=== PATIENT | male | born 1935 | race Caucasian/White ===

== ENCOUNTER 2021-03-10 15:13 | Emergency (ER) | payer MEDICARE, OTHER ==
--- NOTE | 2021-03-10 15:12 | EDM.PDOC ---
ED HPI GENERAL MEDICAL PROBLEM - General Stated Complaint: AMBULANCE Time Seen by Provider: 03/10/21 15:05 Source of Information: Reports: Patient, EMS, Family (Daughter ), RN, RN Notes Reviewed History Limitations: Reports: Other (Significantly hard of hearing) - History of Present Illness INITIAL COMMENTS - FREE TEXT/NARRATIVE: Nelsy is an 86 y/o male, with a history of CVA who is significantly hard of hearing, who presents to the ED via [facility] at the request of his daughter for increased confusion and headache. Upon arrival to this facility, the patient is alert and oriented to self, only; equal strength to all extremities, bilaterally. The patient denies headache or pain to any areas of his body. HPI is limited due to degree of hearing loss, but patient continually states cheerfully, "I am fine.." The patient's daughter reports he called her into the living room due stating something was wrong while grabbing his head; he stated he had a headache but that something else was wrong. She then noted the patient appeared to be confused. The patient's daughter reports his was diagnosed with a COVID infection three weeks ago, therefore she had the patient tested via a [employer] rapid test which was negative. She notes his CVA was in 1996 from which he recovered without complication. Additionally, the patient has experienced inability to keep left eyelid open. This started approximately two weeks ago, per the patient's daughter, for which he will receive examination by ophthalmology in two weeks. Per the daughter, the patient smokes 1/2 pack of cigarettes per day, she denies alcohol or recreational drug use [facility] - Related Data Allergies Allergy/AdvReac Type Severity Reaction Status Date / Time No Known Allergies Allergy Verified 03/10/21 15:34 Home Meds: Home Meds Acetaminophen [Tylenol] 500 mg PO ASDIRECTED 03/10/21 [History] Aspirin 325 mg PO ATDISCHARGE 03/10/21 [History] Bisoprolol/Hydrochlorothiazide [Bisoprolol-Hctz 5-6.25 mg Tab] 1 tab PO ASDIRECTED 03/10/21 [History] Fish Oil/[place]-3 Fatty Acids [Fish Oil 1,000 MG] 4 tab PO ASDIRECTED 03/10/21 [History] atorvaSTATin [Lipitor] 20 mg PO ASDIRECTED 03/10/21 [History] ED ROS GENERAL - Review of Systems Review Of Systems: Comprehensive ROS is negative, except as noted in HPI. ED EXAM, NEURO - Physical Exam Exam: See Below Exam Limited By: Language Barrier (Significantly AGUA CALIENTE) General Appearance: Alert, No Apparent Distress Eye Exam: Right Eye: Vision Changes (Decreased vision in right lateral), Left Eye: Periorbital Changes (Eye lid closed) Ears: Normal External Exam, Normal Canal, Normal TMs, Hearing Loss Nose: Normal Inspection, Normal Mucosa, No Blood Throat/Mouth: Normal Inspection, Normal Oropharynx, Normal Voice, No Airway Compromise. No: Normal Teeth (Poor dentition) Head Exam: Atraumatic, Normocephalic Neck: Normal Inspection, Full Range of Motion Respiratory/Chest: No Accessory Muscle Use, Chest Non-Tender, Rhonchi (Diffuse to bilateral miller). No: Crackles, Rales, Wheezing, Stridor Cardiovascular: Normal Peripheral Pulses, Regular Rate, Rhythm, No Gallop, No JVD, No Murmur, No Rub. No: No Edema GI/Abdominal: Normal Bowel Sounds, Soft, Non-Tender, No Distention, No Abnormal Bruit, No Mass, Pelvis Stable (Male) Exam: Deferred Rectal (Males) Exam: Deferred Neurological: Alert, Normal Mood/Affect, Normal Dorsiflexion, Normal Plantar Flexion, Withdraws to Pain, Abnormal Finger to Nose. No: Normal Gait, Normal Reflexes, Oriented x 3 (Disoriented to place, time, and situation), Abnormal Sensation, Abnormal Light Touch, Abnormal Motor, Abnormal Pin Prick, Straight Leg Raise (L), Straight Leg Raise (R) Back Exam: Normal Inspection, Full Range of Motion Extremities: Normal Range of Motion, Normal Capillary Refill, Pedal Edema (+2 pitting, bilaterally) Psychiatric: Normal Affect, Normal Mood Skin Exam: Warm, Dry, Intact, No Rash, Pallor #1 Interpretation EKG Date: 03/10/21 Time: 16:31 Rhythm: Other (Sinus Casey) Rate (Beats/Min): 53 [place]: Normal P-Wave: Present QRS: Normal ST-T: Normal QT: Normal NM/PQ Interval: 0.303 Comparison: NA - No Prior EKG EKG Interpretation Comments: SB with 1st Degree AVB; No evidence of acute myocardial ischemia Course - Vital Signs Last Recorded V/S: Last Vital Signs Temp 99.2 F 03/10/21 15:24 Pulse 55 L 03/10/21 15:24 Resp 14 03/10/21 15:24 BP 162/62 H 03/10/21 15:24 Pulse Ox 97 03/10/21 15:24 - Orders/Labs/Meds Orders: Active Orders 24 hr Category Date Time Status CULTURE BLOOD [BC] Stat Lab 03/10/21 15:14 Received Labs: Laboratory Tests 03/10/21 03/10/21 03/10/21 Range/Units 15:05 15:14 15:14 WBC 6.6 (5.0-10.0) 10^3/uL RBC 3.67 L (4.6-6.2) 10^6/uL Hgb 11.5 L (14.0-18.0) g/dL Hct 36.0 L (40.0-54.0) % MCV 98.1 (80-100) fL MCH 31.3 (27.0-34.0) pg MCHC 31.9 L (33.0-35.0) g/dL Plt Count 123 L (150-450) 10^3/uL Neut % (Auto) 74.8 (42.2-75.2) % Lymph % (Auto) 14.5 L (20.5-50.1) % [place] % (Auto) 9.5 H (2-8) % Eos % (Auto) 0.9 L (1.0-3.0) % Baso % (Auto) 0.3 (0.0-1.0) % Sodium 142 (136-145) mmol/L Potassium 4.5 (3.5-5.1) mmol/L Chloride 107 (98-107) mmol/L Carbon Dioxide 26 (21-32) mmol/L Anion Gap 13.5 H (7-13) mEq/L BUN 33 H (7-18) mg/dL Creatinine 1.92 H (0.70-1.30) mg/dL Est Cr Clr Drug Dosing TNP Estimated GFR (MDRD) 33 BUN/Creatinine Ratio 17.2 (No establ ref range) Glucose 94 (70-99) mg/dL Lactic Acid (0.4-2.0) mmol/L Calcium 8.3 L (8.5-10.1) mg/dL Magnesium 1.9 (1.8-2.4) mg/dL Total Bilirubin 0.6 (0.2-1.0) mg/dL AST 24 (15-37) U/L ALT 22 (16-63) U/L Alkaline Phosphatase 102 (46-116) U/L Ammonia (11-32) umol/L Troponin I High Sens 12 (<=76) pg/mL C-Reactive Protein < 0.2 (0.0-0.9) mg/dL B-Natriuretic Peptide 276 H (0-100) pg/ml Total Protein 6.4 (6.4-8.2) g/dL Albumin 3.1 L (3.4-5.0) g/dL Globulin 3.3 Albumin/Globulin Ratio 0.94 Urine Color (YELLOW) Urine Appearance (CLEAR) Urine pH (5.0-9.0) Ur Specific [place] (1.005-1.030) Urine Protein (NEGATIVE) Urine Glucose (UA) (NEGATIVE) Urine Ketones (NEGATIVE) Urine Occult Blood (NEGATIVE) Urine Nitrite (NEGATIVE) Urine Bilirubin (NEGATIVE) Urine Urobilinogen (0.2-1.0) mg/dL Ur Leukocyte Esterase (NEGATIVE) U Hyaline Cast (Auto) Urine RBC (0-5) /HPF Urine WBC (0-5/HPF) /HPF Ur Epithelial Cells (NOT SEEN) /HPF Amorphous Sediment (NOT SEEN) /HPF Urine Opiates Screen (NEGATIVE) Ur Oxycodone Screen (NEGATIVE) Urine Methadone Screen (NEGATIVE) Ur Barbiturates Screen (NEGATIVE) U Tricyclic Antidepress (NEGATIVE) Ur Phencyclidine Scrn (NEGATIVE) Ur Amphetamine Screen (NEGATIVE) U Methamphetamines Scrn (NEGATIVE) Urine MDMA Screen (NEGATIVE) U Benzodiazepines Scrn (NEGATIVE) Urine Cocaine Screen (NEGATIVE) U Marijuana (THC) Screen (NEGATIVE) Ethyl Alcohol < 3 (0) mg/dL SARS-CoV-2 RNA (XOCHILT) Negative (NEGATIVE) 03/10/21 03/10/21 03/10/21 Range/Units 15:14 15:14 15:20 WBC (5.0-10.0) 10^3/uL RBC (4.6-6.2) 10^6/uL Hgb (14.0-18.0) g/dL Hct (40.0-54.0) % MCV (80-100) fL MCH (27.0-34.0) pg MCHC (33.0-35.0) g/dL Plt Count (150-450) 10^3/uL Neut % (Auto) (42.2-75.2) % Lymph % (Auto) (20.5-50.1) % [place] % (Auto) (2-8) % Eos % (Auto) (1.0-3.0) % Baso % (Auto) (0.0-1.0) % Sodium (136-145) mmol/L Potassium (3.5-5.1) mmol/L Chloride (98-107) mmol/L Carbon Dioxide (21-32) mmol/L Anion Gap (7-13) mEq/L BUN (7-18) mg/dL Creatinine (0.70-1.30) mg/dL Est Cr Clr Drug Dosing Estimated GFR (MDRD) BUN/Creatinine Ratio (No establ ref range) Glucose (70-99) mg/dL Lactic Acid 1.4 (0.4-2.0) mmol/L Calcium (8.5-10.1) mg/dL Magnesium (1.8-2.4) mg/dL Total Bilirubin (0.2-1.0) mg/dL AST (15-37) U/L ALT (16-63) U/L Alkaline Phosphatase (46-116) U/L Ammonia < 10 L (11-32) umol/L Troponin I High Sens (<=76) pg/mL C-Reactive Protein (0.0-0.9) mg/dL B-Natriuretic Peptide (0-100) pg/ml Total Protein (6.4-8.2) g/dL Albumin (3.4-5.0) g/dL Globulin Albumin/Globulin Ratio Urine Color Yellow (YELLOW) Urine Appearance Clear (CLEAR) Urine pH 6.0 (5.0-9.0) Ur Specific [place] 1.025 (1.005-1.030) Urine Protein 100 H (NEGATIVE) Urine Glucose (UA) Negative (NEGATIVE) Urine Ketones Negative (NEGATIVE) Urine Occult Blood Trace-lysed H (NEGATIVE) Urine Nitrite Negative (NEGATIVE) Urine Bilirubin Negative (NEGATIVE) Urine Urobilinogen 0.2 (0.2-1.0) mg/dL Ur Leukocyte Esterase Negative (NEGATIVE) U Hyaline Cast (Auto) Few Urine RBC 0-5 (0-5) /HPF Urine WBC 0-5 (0-5/HPF) /HPF Ur Epithelial Cells Few (NOT SEEN) /HPF Amorphous Sediment Few (NOT SEEN) /HPF Urine Opiates Screen (NEGATIVE) Ur Oxycodone Screen (NEGATIVE) Urine Methadone Screen (NEGATIVE) Ur Barbiturates Screen (NEGATIVE) U Tricyclic Antidepress (NEGATIVE) Ur Phencyclidine Scrn (NEGATIVE) Ur Amphetamine Screen (NEGATIVE) U Methamphetamines Scrn (NEGATIVE) Urine MDMA Screen (NEGATIVE) U Benzodiazepines Scrn (NEGATIVE) Urine Cocaine Screen (NEGATIVE) U Marijuana (THC) Screen (NEGATIVE) Ethyl Alcohol (0) mg/dL SARS-CoV-2 RNA (XOCHILT) (NEGATIVE) 03/10/21 Range/Units 15:20 WBC (5.0-10.0) 10^3/uL RBC (4.6-6.2) 10^6/uL Hgb (14.0-18.0) g/dL Hct (40.0-54.0) % MCV (80-100) fL MCH (27.0-34.0) pg MCHC (33.0-35.0) g/dL Plt Count (150-450) 10^3/uL Neut % (Auto) (42.2-75.2) % Lymph % (Auto) (20.5-50.1) % [place] % (Auto) (2-8) % Eos % (Auto) (1.0-3.0) % Baso % (Auto) (0.0-1.0) % Sodium (136-145) mmol/L Potassium (3.5-5.1) mmol/L Chloride (98-107) mmol/L Carbon Dioxide (21-32) mmol/L Anion Gap (7-13) mEq/L BUN (7-18) mg/dL Creatinine (0.70-1.30) mg/dL Est Cr Clr Drug Dosing Estimated GFR (MDRD) BUN/Creatinine Ratio (No establ ref range) Glucose (70-99) mg/dL Lactic Acid (0.4-2.0) mmol/L Calcium (8.5-10.1) mg/dL Magnesium (1.8-2.4) mg/dL Total Bilirubin (0.2-1.0) mg/dL AST (15-37) U/L ALT (16-63) U/L Alkaline Phosphatase (46-116) U/L Ammonia (11-32) umol/L Troponin I High Sens (<=76) pg/mL C-Reactive Protein (0.0-0.9) mg/dL B-Natriuretic Peptide (0-100) pg/ml Total Protein (6.4-8.2) g/dL Albumin (3.4-5.0) g/dL Globulin Albumin/Globulin Ratio Urine Color (YELLOW) Urine Appearance (CLEAR) Urine pH (5.0-9.0) Ur Specific [place] (1.005-1.030) Urine Protein (NEGATIVE) Urine Glucose (UA) (NEGATIVE) Urine Ketones (NEGATIVE) Urine Occult Blood (NEGATIVE) Urine Nitrite (NEGATIVE) Urine Bilirubin (NEGATIVE) Urine Urobilinogen (0.2-1.0) mg/dL Ur Leukocyte Esterase (NEGATIVE) U Hyaline Cast (Auto) Urine RBC (0-5) /HPF Urine WBC (0-5/HPF) /HPF Ur Epithelial Cells (NOT SEEN) /HPF Amorphous Sediment (NOT SEEN) /HPF Urine Opiates Screen Negative (NEGATIVE) Ur Oxycodone Screen Negative (NEGATIVE) Urine Methadone Screen Negative (NEGATIVE) Ur Barbiturates Screen Negative (NEGATIVE) U Tricyclic Antidepress Negative (NEGATIVE) Ur Phencyclidine Scrn Negative (NEGATIVE) Ur Amphetamine Screen Negative (NEGATIVE) U Methamphetamines Scrn Negative (NEGATIVE) Urine MDMA Screen Negative (NEGATIVE) U Benzodiazepines Scrn Negative (NEGATIVE) Urine Cocaine Screen Negative (NEGATIVE) U Marijuana (THC) Screen Negative (NEGATIVE) Ethyl Alcohol (0) mg/dL SARS-CoV-2 RNA (XOCHILT) (NEGATIVE) - Radiology Interpretation Free Text/Narrative:: [facility] Final Radiology Report Call: [phone] assistance Online chat: [email or web address] Name: NELSY EDWARD Age: 86Years M Date: 03/10/2021 SSN: -- : [id number] Study: CT HEAD WO CONT Requesting Physician: Lissette Morales Images: 160 Addl Studies: Provided Clinical History: r/o stroke Contrast: Without Contrast Medium: Contrast Amount: Contrast Method: Page 1 of 2 PROCEDURE INFORMATION: Exam: CT Head Without Contrast Exam date and time: 03/10/2021 3:52 PM Age: 86 years old Clinical indication: Weakness, facial; Additional info: R/O stroke TECHNIQUE: Imaging protocol: Computed tomography of the head without contrast. Radiation optimization: All CT scans at this facility use at least one of these dose optimization techniques: automated exposure control; mA and/or kV adjustment per patient size (includes targeted exams where dose is matched to clinical indication); or iterative reconstruction. Other technique: STROKE PROTOCOL was implemented. COMPARISON: No relevant prior studies available. FINDINGS: Brain: There is no intracranial mass effect or midline shift. There is no sign of acute intracranial hemorrhage or cerebral edema. There is mild supratentorial white matter lucency, consistent with chronic microvascular ischemic change. Cerebral ventricles: No ventriculomegaly. Paranasal sinuses: Visualized sinuses are unremarkable. No fluid levels. Mastoid air cells: Visualized mastoid air cells are well aerated. Bones/joints: Skull base and overlying calvarium are intact. No lytic or osteosclerotic lesions. Soft tissues: Unremarkable. IMPRESSION: 1. Negative head CT. 2. [place] Stroke Program Early CT Score (ASPECTS) = 10. Thank you for allowing us to participate in the care of your patient. Dictated and Authenticated by: Reji Raphael MD 03/10/2021 4:33 PM Central Time ([place] & [place]) [facility] Final Radiology Report Call: [phone] assistance Online chat: [email or web address] Name: NELSY EDWARD Age: 86Years M Date: 03/10/2021 SSN: -- : [id number] Study: CT CHEST WO CONT Requesting Physician: Lissette Morales Images: [id number] Addl Studies: Provided Clinical History: Rhonchi throughout, r/o pneumonia Contrast: Without Contrast Medium: Contrast Amount: Contrast Method: Page 1 of 2 PROCEDURE INFORMATION: Exam: CT Chest Without Contrast; Diagnostic Exam date and time: 03/10/2021 3:52 PM Age: 86 years old Clinical indication: Other: Rhonchi throughout, R/O pneumonia TECHNIQUE: Imaging protocol: Diagnostic computed tomography of the chest without contrast. Total images: 1533 Radiation optimization: All CT scans at this facility use at least one of these dose optimization techniques: automated exposure control; mA and/or kV adjustment per patient size (includes targeted exams where dose is matched to clinical indication); or iterative reconstruction. COMPARISON: No relevant prior studies available. FINDINGS: Lungs: Dependent atelectasis at the lung bases. Minimal centrilobular emphysema most pronounced upper lobes. Pleural spaces: Unremarkable. No pneumothorax. No pleural effusion. Heart: Coronary artery calcification. Aorta: Distended ascending thoracic aorta measuring 3.7 cm. Lymph nodes: Unremarkable. No enlarged lymph nodes. Liver: Calcified hepatic granulomata. Gallbladder and bile ducts: Status post cholecystectomy. Spleen: Calcified splenic granulomata. Bones/joints: Degenerative changes of spine. Soft tissues: Mild diffuse subcutaneous/soft tissue edema. IMPRESSION: 1. Minimal dependent atelectasis. No discrete focal pneumonia. 2. Minimal diffuse subcutaneous/soft tissue edema. 3. See above for other details. Thank you for allowing us to participate in the care of your patient. Dictated and Authenticated by: Reji Jacobson MD 03/10/2021 4:51 PM Central Time ([place] & [place]) - Re-Assessments/Exams Free Text/Narrative Re-Assessment/Exam: 03/10/21 CT head obtained. Patient increasingly confused compared to admission, unable to recognize daughter at this time. Oriented to self, only. Case discussed with Dr. Quinn, neurologist at [facility], who recommends reviewing the case with [facility] given degree of aphasia and apparent vision loss. Case discussed with Dr. Barbosa who kindly accepted patient for transfer. Patient out of window for tPA. Will send by rotor given length of time for transport via [place]. Findings of examination, lab work, and imaging reviewed with patient and daughter. Patient's daughter verbalized understanding and agreement with the plan of care. Departure - Departure Time of Disposition: 18:19 Disposition: DC/Tfer to Acute Hospital 02 Condition: Fair Clinical Impression: CVA (cerebral vascular accident) Qualifiers: CVA mechanism: unspecified Qualified Code(s): I63.9 - Cerebral infarction, unspecified - Discharge Information Forms: Interfacility Transfer EMTALA - My Orders Last 24 Hours: My Active Orders 03/10/21 15:14 CULTURE BLOOD [BC] Stat - Assessment/Plan Last 24 Hours: My Active Orders 03/10/21 15:14 CULTURE BLOOD [BC] Stat
[2021-03-10 15:40] LABS: AMPHETAMINES,URINE NEGATIVE (NEGATIVE); BARBITURATES,URINE NEGATIVE (NEGATIVE); BENZODIAZEPINE,URINE NEGATIVE (NEGATIVE); MDMA (ECSTASY), URINE NEGATIVE (NEGATIVE); METHADONE,URINE NEGATIVE (NEGATIVE); METHAMPHETAMINES,URINE NEGATIVE (NEGATIVE); OPIATES,URINE NEGATIVE (NEGATIVE); OXYCODONE,URINE NEGATIVE (NEGATIVE); PHENCYCLIDINE,URINE NEGATIVE (NEGATIVE); TCA,URINE NEGATIVE (NEGATIVE)
[2021-03-10 15:48] LABS: ANION GAP 13.5 mEq/L (7-13); CHLORIDE,CL 107 mmol/L (98-107); SODIUM,NA 142 mmol/L (136-145)
--- NOTE | 2021-03-10 16:34 | CT ---
PROCEDURE INFORMATION: Exam: CT Head Without Contrast Exam date and time: 03/10/2021 3:52 PM Age: 86 years old Clinical indication: Weakness, facial; Additional info: R/O stroke TECHNIQUE: Imaging protocol: Computed tomography of the head without contrast. Radiation optimization: All CT scans at this facility use at least one of these dose optimization techniques: automated exposure control; mA and/or kV adjustment per patient size (includes targeted exams where dose is matched to clinical indication); or iterative reconstruction. Other technique: STROKE PROTOCOL was implemented. COMPARISON: No relevant prior studies available. FINDINGS: Brain: There is no intracranial mass effect or midline shift. There is no sign of acute intracranial hemorrhage or cerebral edema. There is mild supratentorial white matter lucency, consistent with chronic microvascular ischemic change. Cerebral ventricles: No ventriculomegaly. Paranasal sinuses: Visualized sinuses are unremarkable. No fluid levels. Mastoid air cells: Visualized mastoid air cells are well aerated. Bones/joints: Skull base and overlying calvarium are intact. No lytic or osteosclerotic lesions. Soft tissues: Unremarkable. IMPRESSION: 1. Negative head CT. 2. [place] Stroke Program Early CT Score (ASPECTS) = 10.
--- NOTE | 2021-03-10 16:51 | CT ---
PROCEDURE INFORMATION: Exam: CT Chest Without Contrast; Diagnostic Exam date and time: 03/10/2021 3:52 PM Age: 86 years old Clinical indication: Other: Rhonchi throughout, R/O pneumonia TECHNIQUE: Imaging protocol: Diagnostic computed tomography of the chest without contrast. Total images: 1533 Radiation optimization: All CT scans at this facility use at least one of these dose optimization techniques: automated exposure control; mA and/or kV adjustment per patient size (includes targeted exams where dose is matched to clinical indication); or iterative reconstruction. COMPARISON: No relevant prior studies available. FINDINGS: Lungs: Dependent atelectasis at the lung bases. Minimal centrilobular emphysema most pronounced upper lobes. Pleural spaces: Unremarkable. No pneumothorax. No pleural effusion. Heart: Coronary artery calcification. Aorta: Distended ascending thoracic aorta measuring 3.7 cm. Lymph nodes: Unremarkable. No enlarged lymph nodes. Liver: Calcified hepatic granulomata. Gallbladder and bile ducts: Status post cholecystectomy. Spleen: Calcified splenic granulomata. Bones/joints: Degenerative changes of spine. Soft tissues: Mild diffuse subcutaneous/soft tissue edema. IMPRESSION: 1. Minimal dependent atelectasis. No discrete focal pneumonia. 2. Minimal diffuse subcutaneous/soft tissue edema. 3. See above for other details.
== END 2021-03-10 18:39 ==
LOC: DL.ED 15:13
DX: I63.9 Cerebral infarction, unspecified (principal); Z86.73 Personal history of transient ischemic attack (TIA), and cerebral infarction without residual deficits; Z79.82 Long term (current) use of aspirin; Z79.899 Other long term (current) drug therapy; Z20.822 Contact with and (suspected) exposure to COVID-19
CPT/HCPCS: 36415; 70450; 71250; 80053; 80305; 80307; 81001; 82140; 83605; 83735; 83880; 84484; 85025; 86140; 87040; 93005; 99285; U0002

== ENCOUNTER 2022-11-05 09:01 | Emergency (ER) | payer MEDICARE, OTHER ==
[2022-11-05] MEDS ORDERED: Sodium Chloride 0.9% 10 ML Syringe FLUSH PRN (09:06)
[2022-11-05 09:21] LABS: BASOPHILS PERCENT AUTO 0.3 % (0.0-1.0); EOSINOPHILS PERCENT AUTO 4.3 % (1.0-3.0); HEMATOCRIT 32.3 % (40.0-54.0); HEMOGLOBIN 10.4 g/dL (14.0-18.0); LYMPHOCYTES PERCENT AUTO 21.6 % (20.5-50.1); MEAN CORPUSCULAR HEMOGLOBIN 32.1 pg (27.0-34.0); MEAN CORPUSCULAR HGB CONC 32.2 g/dL (33.0-35.0); MEAN CORPUSCULAR VOLUME 99.7 fL (80-100); MONOCYTES PERCENT AUTO 9.9 % (2-8); NEUTROPHILS PERCENT AUTO 63.9 % (42.2-75.2); PLATELET COUNT,PLT 157 10^3/uL (150-450); RED BLOOD CELL COUNT 3.24 10^6/uL (4.6-6.2); WHITE BLOOD CELL COUNT,WBC 5.9 10^3/uL (5.0-10.0)
[2022-11-05 09:40] LABS: INR 0.9 (0.9-1.2); PROTHROMBIN TIME 9.5 SEC (9.0-12.0); PTT,PARTIAL THROMBOPLSTIN TIME 24.5 SEC (22.0-34.0)
[2022-11-05 09:51] LABS: ALANINE AMINOTRANSFERASE,ALT 15 U/L (16-63); ALKALINE PHOSPHATASE 126 U/L (46-116); ANION GAP 14.5 mEq/L (7-13); ASPARTATE AMNIOTRANSFERASE,AST 21 U/L (15-37); BILIRUBIN TOTAL 0.3 mg/dL (0.2-1.0); BLOOD UREA NITROGEN,BUN 52 mg/dL (7-18); BUN/CREATININE RATIO 21.9 (No establ ref range); CALCIUM 8.7 mg/dL (8.5-10.1); CARBON DIOXIDE,CO2 24 mmol/L (21-32); CHLORIDE,CL 108 mmol/L (98-107); CREATININE 2.37 mg/dL (0.70-1.30); EST CRCL DRUG DOSING (CG) 21.39 mL/min; GLUCOSE RANDOM 95 mg/dL (70-99); POTASSIUM,K 3.5 mmol/L (3.5-5.1); PROTEIN TOTAL,TP 6.5 g/dL (6.4-8.2); SODIUM,NA 143 mmol/L (136-145)
[2022-11-05] MEDS ORDERED: Sodium Chloride 0.9% 1,000 ML IV ONE ×2 (09:51→11:01)
[2022-11-05 09:53] LABS: A/G RATIO 0.86; C-REACTIVE PROTEIN < 0.2 mg/dL (0.0-0.9); ESTIMATED GFR 26 mL/min (>=60); ETHANOL BLOOD MEDICAL < 3 mg/dL (0)
[2022-11-05 10:28] LABS: APPEARANCE,URINE CLEAR (CLEAR); BILIRUBIN,URINE NEGATIVE (NEGATIVE); COLOR,URINE YELLOW (YELLOW); GLUCOSE,URINE NEGATIVE (NEGATIVE); KETONES,URINE NEGATIVE (NEGATIVE); LEUKOCYTE ESTERASE,URINE NEGATIVE (NEGATIVE); NITRITE,URINE NEGATIVE (NEGATIVE); OCCULT BLOOD,URINE NEGATIVE (NEGATIVE); PH,URINE 5.5 (5.0-9.0); PROTEIN,URINE TRACE (NEGATIVE); UROBILINOGEN,URINE 0.2 mg/dL (0.2-1.0)
[2022-11-05 10:29] LABS: AMPHETAMINES,URINE NEGATIVE (NEGATIVE); BARBITURATES,URINE NEGATIVE (NEGATIVE); BENZODIAZEPINE,URINE NEGATIVE (NEGATIVE); MDMA (ECSTASY), URINE NEGATIVE (NEGATIVE); METHADONE,URINE NEGATIVE (NEGATIVE); METHAMPHETAMINES,URINE NEGATIVE (NEGATIVE); OPIATES,URINE NEGATIVE (NEGATIVE); OXYCODONE,URINE NEGATIVE (NEGATIVE); PHENCYCLIDINE,URINE NEGATIVE (NEGATIVE); TCA,URINE NEGATIVE (NEGATIVE)
[2022-11-05] MEDS ORDERED: HYDROmorphone 1 MG/ML Syringe IVPUSH ONE (10:30)
[2022-11-05 11:06] LABS: BACTERIA,URINE RARE /HPF (0-FEW/HPF); EPITHELIAL CELLS,URINE FEW /HPF (NOT SEEN); HYALINE CASTS,URINE FEW; RBC,URINE 0-5 /HPF (0-5)
== END 2022-11-05 11:24 ==
LOC: DL.ED 09:01
DX: S72.002A Fracture of unspecified part of neck of left femur, initial encounter for closed fracture (principal); S51.012A Laceration without foreign body of left elbow, initial encounter; Z79.82 Long term (current) use of aspirin; W18.09XA Striking against other object with subsequent fall, initial encounter; Y92.009 Unspecified place in unspecified non-institutional (private) residence as the place of occurrence of the external cause
CPT/HCPCS: 36415; 70450; 72125; 73700; 80053; 80305; 80307; 81001; 82947; 83605; 83735; 84145; 84484; 85025; 85610; 85730; 86140; 93005; 96361; 96374; 99285; J1170; J7030; 93010; 99284; J3490

== ENCOUNTER 2022-12-26 12:24 | Inpatient (IN) | payer MEDICARE, OTHER ==
[2022-12-26 13:07] LABS: BASOPHILS PERCENT AUTO 0.2 % (0.0-1.0); EOSINOPHILS PERCENT AUTO 1.1 % (1.0-3.0); HEMATOCRIT 29.4 % (40.0-54.0); HEMOGLOBIN 9.4 g/dL (14.0-18.0); LYMPHOCYTES PERCENT AUTO 11.6 % (20.5-50.1); MEAN CORPUSCULAR HEMOGLOBIN 28.1 pg (27.0-34.0); MONOCYTES PERCENT AUTO 8.6 % (2-8); NEUTROPHILS PERCENT AUTO 78.5 % (42.2-75.2); PLATELET COUNT,PLT 230 10^3/uL (150-450); RED BLOOD CELL COUNT 3.34 10^6/uL (4.6-6.2); WHITE BLOOD CELL COUNT,WBC 5.7 10^3/uL (5.0-10.0)
[2022-12-26] MEDS: Sodium Chloride 0.9% 10 ML Syringe FLUSH PRN ×3 (13:23→21:50)
[2022-12-26 13:26] LABS: PROTHROMBIN TIME 10.4 SEC (9.0-12.0); PTT,PARTIAL THROMBOPLSTIN TIME 27.6 SEC (22.0-34.0)
[2022-12-26 13:27] LABS: ALANINE AMINOTRANSFERASE,ALT 18 U/L (16-63); ALKALINE PHOSPHATASE 129 U/L (46-116); ANION GAP 16.9 mEq/L (7-13); ASPARTATE AMNIOTRANSFERASE,AST 26 U/L (15-37); BILIRUBIN TOTAL 0.4 mg/dL (0.2-1.0); BLOOD UREA NITROGEN,BUN 35 mg/dL (7-18); BUN/CREATININE RATIO 12.1 (No establ ref range); CALCIUM 8.3 mg/dL (8.5-10.1); CARBON DIOXIDE,CO2 20 mmol/L (21-32); CHLORIDE,CL 107 mmol/L (98-107); GLUCOSE RANDOM 86 mg/dL (70-99); MAGNESIUM 1.9 mg/dL (1.8-2.4); POTASSIUM,K 4.9 mmol/L (3.5-5.1); SODIUM,NA 139 mmol/L (136-145)
[2022-12-26 13:28] LABS: A/G RATIO 0.75; ESTIMATED GFR 20 mL/min (>=60); LACTIC ACID 1.3 mmol/L (0.4-2.0)
[2022-12-26] MEDS ORDERED: Amiodarone 150 MG/3 ML SDV IVPUSH ONE (13:49)
[2022-12-26] MEDS ORDERED: Albuterol/Ipratropium 3.0-0.5 MG/3 ML Neb Soln NEB PRN (15:04)
[2022-12-26] MEDS ORDERED: Ondansetron 4 MG/2 ML SDV IVPUSH PRN (15:04)
[2022-12-26] MEDS ORDERED: oxyCODONE 5 MG Tab PO PRN (15:04)
[2022-12-26] MEDS ORDERED: Acetaminophen 325 MG Tab PO PRN (15:04)
[2022-12-26] MEDS ORDERED: hydrALAZINE 20 MG/ML SDV IVPUSH PRN (15:10)
[2022-12-26] MEDS ORDERED: LORazepam 2 MG/ML SDV IVPUSH PRN (15:11)
[2022-12-26] MEDS ORDERED: amLODIPine 5 MG Tab PO SCH (15:15)
[2022-12-26] MEDS ORDERED: cefTRIAXone 1 GM Vial IVPUSH ONE (15:22)
[2022-12-26] MEDS: Lactated Ringers 1,000 ML IV SCH (16:17)
[2022-12-26 22:42] LABS: APPEARANCE,URINE CLEAR (CLEAR); BILIRUBIN,URINE NEGATIVE (NEGATIVE); COLOR,URINE YELLOW (YELLOW); GLUCOSE,URINE NEGATIVE (NEGATIVE); KETONES,URINE NEGATIVE (NEGATIVE); LEUKOCYTE ESTERASE,URINE NEGATIVE (NEGATIVE); NITRITE,URINE NEGATIVE (NEGATIVE); OCCULT BLOOD,URINE NEGATIVE (NEGATIVE); PROTEIN,URINE 30 (NEGATIVE); UROBILINOGEN,URINE 0.2 mg/dL (0.2-1.0)
[2022-12-26 22:49] LABS: AMPHETAMINES,URINE NEGATIVE (NEGATIVE); BARBITURATES,URINE NEGATIVE (NEGATIVE); BENZODIAZEPINE,URINE POSITIVE (NEGATIVE); MDMA (ECSTASY), URINE NEGATIVE (NEGATIVE); METHADONE,URINE NEGATIVE (NEGATIVE); METHAMPHETAMINES,URINE NEGATIVE (NEGATIVE); OPIATES,URINE NEGATIVE (NEGATIVE); OXYCODONE,URINE NEGATIVE (NEGATIVE); PHENCYCLIDINE,URINE NEGATIVE (NEGATIVE); TCA,URINE NEGATIVE (NEGATIVE)
[2022-12-26 22:53] LABS: BACTERIA,URINE RARE /HPF (0-FEW/HPF); EPITHELIAL CELLS,URINE RARE /HPF (NOT SEEN); HYALINE CASTS,URINE RARE; RBC,URINE 0-5 /HPF (0-5); WBC,URINE 0-5 /HPF (0-5/HPF)
[2022-12-26] MEDS ORDERED: atorvaSTATin 20 MG Tab PO SCH (23:00)
[2022-12-27] MEDS: Lactated Ringers 1,000 ML IV SCH ×2 (02:23→12:15)
[2022-12-27] MEDS ORDERED: LORazepam 2 MG/ML SDV IVPUSH ONE ×2 (02:25→03:30)
[2022-12-27] MEDS ORDERED: Morphine 2 MG/ML SYRINGE IVPUSH PRN (02:25)
[2022-12-27] MEDS: Sodium Chloride 0.9% 10 ML Syringe FLUSH PRN ×3 (02:30→02:38)
== END 2022-12-27 16:00 | disposition home or self-care (01) | DRG 309 ==
LOC: DL.ED 12:24 → DL.MS 14:40
PROVIDERS: ADMIT Internal Medicine; ATTEND Internal Medicine
PROC: 30233N1 Transfusion of Nonautologous Red Blood Cells into Peripheral Vein, Percutaneous Approach (ICD-10-PCS; principal; 2022-12-26)
DX: I47.20 Ventricular tachycardia, unspecified (principal); N39.0 Urinary tract infection, site not specified; R29.6 Repeated falls; R44.0 Auditory hallucinations; T81.40XA Infection following a procedure, unspecified, initial encounter; S51.012A Laceration without foreign body of left elbow, initial encounter; I48.91 Unspecified atrial fibrillation; D64.9 Anemia, unspecified; R44.1 Visual hallucinations; Z66 Do not resuscitate; Z90.01 Acquired absence of eye; H44.522 Atrophy of globe, left eye; I10 Essential (primary) hypertension; E78.00 Pure hypercholesterolemia, unspecified; M19.90 Unspecified osteoarthritis, unspecified site; H40.9 Unspecified glaucoma; M81.0 Age-related osteoporosis without current pathological fracture; Z96.659 Presence of unspecified artificial knee joint; S20.212A Contusion of left front wall of thorax, initial encounter; W19.XXXA Unspecified fall, initial encounter; Z79.02 Long term (current) use of antithrombotics/antiplatelets; Z86.73 Personal history of transient ischemic attack (TIA), and cerebral infarction without residual deficits; Z79.899 Other long term (current) drug therapy; Z79.82 Long term (current) use of aspirin; Z98.890 Other specified postprocedural states; Y92.009 Unspecified place in unspecified non-institutional (private) residence as the place of occurrence of the external cause
CPT/HCPCS: 36415; 71045; 80053; 81001; 83605; 83735; 84145; 84484; 85025; 85610; 85730; 86140; 87040 ×2; 87070; 87077; 87186; 93005 ×2; J0282; 80305-QW; 96374; 99223; 99239; 99285-25; A9270-GY; J0360; J0696; J2060; J2270; J3490; J7120

== ENCOUNTER 2024-04-14 10:29 | Inpatient (IN) | payer MEDICARE, OTHER ==
[2024-04-14 10:29] LABS: BASOPHILS PERCENT AUTO 0.1 % (0.0-1.0); EOSINOPHILS PERCENT AUTO 2.1 % (1.0-3.0); HEMOGLOBIN 10.1 g/dL (14.0-18.0); LYMPHOCYTES PERCENT AUTO 11.5 % (20.5-50.1); MEAN CORPUSCULAR HEMOGLOBIN 31.6 pg (27.0-34.0); MEAN CORPUSCULAR HGB CONC 30.6 g/dL (33.0-35.0); MEAN CORPUSCULAR VOLUME 103.1 fL (80-100); NEUTROPHILS PERCENT AUTO 77.3 % (42.2-75.2); PLATELET COUNT,PLT 181 10^3/uL (150-450); WHITE BLOOD CELL COUNT,WBC 8.2 10^3/uL (5.0-10.0)
[~2024-04-14 10:29] MED LIST: Sodium Chloride 0.9% 10 ML Syringe FLUSH PRN
[2024-04-14] MEDS: Iopamidol 755 Mg/ML 100 ML Bottle IVPUSH ONE (10:39)
[2024-04-14 11:08] LABS: PROTHROMBIN TIME 10.3 SEC (9.0-12.0)
[2024-04-14 11:11] LABS: ALBUMIN 2.6 g/dL (3.4-5.0); ANION GAP 17.2 mEq/L (7-13); BILIRUBIN TOTAL 0.4 mg/dL (0.2-1.0); BUN/CREATININE RATIO 13.8 (No establ ref range); CALCIUM 8.7 mg/dL (8.5-10.1); CREATININE 3.18 mg/dL (0.70-1.30); EST CRCL DRUG DOSING (CG) 16.58 mL/min; POTASSIUM,K 4.2 mmol/L (3.5-5.1); PROTEIN TOTAL,TP 6.8 g/dL (6.4-8.2)
[2024-04-14 11:12] LABS: A/G RATIO 0.62
[2024-04-14] MEDS: Sodium Chloride 0.9% 1,000 ML IV ONE (11:38)
[2024-04-14] MEDS: Clopidogrel 75 MG Tab PO ONE (12:13)
[2024-04-14] MEDS: Aspirin 81 MG Tab.Chew PO ONE (12:14)
[2024-04-14] MEDS: LORazepam 1 MG Tab PO ONE (12:32)
[2024-04-14] MEDS: Amiodarone 200 MG Tab PO ONE (14:12)
[2024-04-14] MEDS ORDERED: Melatonin 3 MG Tab PO PRN (16:27)
[2024-04-14] MEDS ORDERED: Acetaminophen 325 MG Tab PO PRN (16:27)
[2024-04-14] MEDS ORDERED: Albuterol/Ipratropium 3.0-0.5 MG/3 ML Neb Soln NEB PRN (16:27)
[2024-04-14] MEDS ORDERED: Ondansetron 4 MG/2 ML SDV IVPUSH PRN (16:27)
[2024-04-14] MEDS ORDERED: Polyethylene Glycol 3350 Powder 17 GM Packet PO PRN (16:27)
[2024-04-14] MEDS ORDERED: Ketorolac 30 MG/ML SDV IVPUSH PRN (16:27)
[2024-04-14] MEDS ORDERED: Docusate Sodium 100 MG Cap PO PRN (16:27)
[2024-04-14 17:09] LABS: CHOLESTEROL HDL 49 mg/dL (40-59); CHOLESTEROL LDL CALCULATED 59 mg/dL (0-100); CHOLESTEROL TOTAL 129 mg/dL (0-199); TRIGLYCERIDES 106 mg/dL (0-149)
[2024-04-14] MEDS: Nicotine 21 MG/24 Hr Patch TRDERM SCH (18:20)
[2024-04-14] MEDS: Sodium Chloride 0.9% 1,000 ML IV SCH (18:20)
[2024-04-14] MEDS ORDERED: Labetalol 20 MG/4 ML Syringe IVPUSH PRN (18:50)
[2024-04-14] MEDS: diphenhydrAMINE 50 MG/ML SDV ONE (20:55)
[2024-04-14] MEDS: Ferrous Sulfate 325 MG Tab PO SCH (20:56)
[2024-04-14] MEDS: diphenhydrAMINE 50 MG/ML SDV IVPUSH ONE (20:59)
[2024-04-14] MEDS: HYDROmorphone 0.5 MG/0.5 ML Syringe IVPUSH PRN (22:56)
[2024-04-15] MEDS: Ziprasidone Mesylate 20 MG Vial ONE (03:50)
[2024-04-15] MEDS: Ziprasidone Mesylate 20 MG Vial IM STA (03:59)
[2024-04-15 05:59] LABS: BASOPHILS PERCENT AUTO 0.2 % (0.0-1.0); EOSINOPHILS PERCENT AUTO 1.5 % (1.0-3.0); HEMATOCRIT 29.9 % (40.0-54.0); HEMOGLOBIN 9.3 g/dL (14.0-18.0); LYMPHOCYTES PERCENT AUTO 8.2 % (20.5-50.1); MEAN CORPUSCULAR HEMOGLOBIN 31.8 pg (27.0-34.0); MEAN CORPUSCULAR HGB CONC 31.1 g/dL (33.0-35.0); MEAN CORPUSCULAR VOLUME 102.4 fL (80-100); MONOCYTES PERCENT AUTO 11.3 % (2-8); NEUTROPHILS PERCENT AUTO 78.8 % (42.2-75.2); PLATELET COUNT,PLT 134 10^3/uL (150-450); RED BLOOD CELL COUNT 2.92 10^6/uL (4.6-6.2); WHITE BLOOD CELL COUNT,WBC 6.1 10^3/uL (5.0-10.0)
[2024-04-15 06:38] LABS: PROTHROMBIN TIME 10.6 SEC (9.0-12.0); PTT,PARTIAL THROMBOPLSTIN TIME 27.3 SEC (22.0-34.0)
[2024-04-15 06:52] LABS: ALBUMIN 2.5 g/dL (3.4-5.0); ANION GAP 16.7 mEq/L (7-13); BILIRUBIN TOTAL 0.4 mg/dL (0.2-1.0); BUN/CREATININE RATIO 13.6 (No establ ref range); CALCIUM 8.7 mg/dL (8.5-10.1); CREATININE 2.65 mg/dL (0.70-1.30); EST CRCL DRUG DOSING (CG) 16.13 mL/min; FOLIC ACID 13.5 ng/mL (8.6-58.9); MAGNESIUM 1.9 mg/dL (1.8-2.4); POTASSIUM,K 3.7 mmol/L (3.5-5.1); PROTEIN TOTAL,TP 6.4 g/dL (6.4-8.2)
[2024-04-15 06:53] LABS: A/G RATIO 0.64
[2024-04-15] MEDS: Sodium Chloride 0.9% 1,000 ML IV SCH (08:15)
[2024-04-15] MEDS: Amiodarone 200 MG Tab PO SCH (10:41)
[2024-04-15] MEDS: amLODIPine 5 MG Tab PO SCH (10:41)
[2024-04-15] MEDS: atorvaSTATin 20 MG Tab PO SCH (10:41)
[2024-04-15] MEDS: Aspirin 81 MG Tab.Chew PO SCH (10:41)
[2024-04-15] MEDS: Albuterol/Ipratropium 3.0-0.5 MG/3 ML Neb Soln NEB SCH (11:04)
[2024-04-15] MEDS: Losartan 25 MG Tab PO SCH (12:59)
[2024-04-15] MEDS: Erythromycin Base 0.5% Ophth Oint 1 GM Tube EYERT SCH (14:12)
[2024-04-15] MEDS: hydrALAZINE 20 MG/ML SDV IVPUSH PRN (14:13)
[2024-04-15 17:08] LABS: APPEARANCE,URINE CLOUDY (CLEAR); BILIRUBIN,URINE NEGATIVE (NEGATIVE); COLOR,URINE YELLOW (YELLOW); GLUCOSE,URINE NEGATIVE (NEGATIVE); KETONES,URINE NEGATIVE (NEGATIVE); LEUKOCYTE ESTERASE,URINE SMALL (NEGATIVE); NITRITE,URINE NEGATIVE (NEGATIVE); OCCULT BLOOD,URINE MODERATE (NEGATIVE); PH,URINE 6.5 (5.0-9.0); PROTEIN,URINE >=300 (NEGATIVE); UROBILINOGEN,URINE 0.2 mg/dL (0.2-1.0)
[2024-04-15 17:18] LABS: AMORPHOUS SEDIMENT,URINE FEW /HPF (NOT SEEN); BACTERIA,URINE MANY /HPF (0-FEW/HPF); EPITHELIAL CELLS,URINE RARE /HPF (NOT SEEN); MUCUS,URINE FEW /LPF (NOT SEEN); RBC,URINE 0-5 /HPF (0-5); WBC,URINE SEMI-PACKED /HPF (0-5/HPF)
[2024-04-15] MEDS: cefTRIAXone 1 GM Vial IVPUSH SCH (18:12)
[2024-04-15] MEDS: LORazepam 2 MG/ML SDV IVPUSH PRN (22:00)
[2024-04-15] MEDS: Check NICOTINE Patch TRDERM SCH (22:06)
[2024-04-16 06:47] LABS: BASOPHILS PERCENT AUTO 0.1 % (0.0-1.0); EOSINOPHILS PERCENT AUTO 0.7 % (1.0-3.0); HEMATOCRIT 28.7 % (40.0-54.0); HEMOGLOBIN 8.7 g/dL (14.0-18.0); LYMPHOCYTES PERCENT AUTO 4.3 % (20.5-50.1); MEAN CORPUSCULAR HEMOGLOBIN 31.2 pg (27.0-34.0); MEAN CORPUSCULAR HGB CONC 30.3 g/dL (33.0-35.0); MEAN CORPUSCULAR VOLUME 102.9 fL (80-100); MONOCYTES PERCENT AUTO 8.6 % (2-8); NEUTROPHILS PERCENT AUTO 86.3 % (42.2-75.2); PLATELET COUNT,PLT 175 10^3/uL (150-450); RED BLOOD CELL COUNT 2.79 10^6/uL (4.6-6.2); WHITE BLOOD CELL COUNT,WBC 7.7 10^3/uL (5.0-10.0)
[2024-04-16 07:23] LABS: ALBUMIN 2.3 g/dL (3.4-5.0); ANION GAP 16.1 mEq/L (7-13); BILIRUBIN TOTAL 0.3 mg/dL (0.2-1.0); BUN/CREATININE RATIO 12.7 (No establ ref range); CALCIUM 8.5 mg/dL (8.5-10.1); CREATININE 2.84 mg/dL (0.70-1.30); EST CRCL DRUG DOSING (CG) 15.05 mL/min; POTASSIUM,K 4.1 mmol/L (3.5-5.1); PROTEIN TOTAL,TP 6.2 g/dL (6.4-8.2)
[2024-04-16 07:25] LABS: A/G RATIO 0.59
[2024-04-16] MEDS: Sodium Chloride 0.9% 1,000 ML IV SCH (10:08)
[2024-04-16] MEDS: Azithromycin 500 MG in Sodium Chloride 0.9% 250 ML IV SCH (10:09)
[2024-04-16] MEDS: methylPREDNISolone Sodium Succinate 40 MG/1 ML SDV IVPUSH SCH (10:10)
[2024-04-17 06:19] LABS: HEMOGLOBIN 8.5 g/dL (14.0-18.0); LYMPHOCYTES PERCENT AUTO 4.2 % (20.5-50.1); MEAN CORPUSCULAR HEMOGLOBIN 31.3 pg (27.0-34.0); MEAN CORPUSCULAR HGB CONC 30.4 g/dL (33.0-35.0); MEAN CORPUSCULAR VOLUME 102.9 fL (80-100); MONOCYTES PERCENT AUTO 6.4 % (2-8); NEUTROPHILS PERCENT AUTO 89.4 % (42.2-75.2); PLATELET COUNT,PLT 178 10^3/uL (150-450); RED BLOOD CELL COUNT 2.72 10^6/uL (4.6-6.2); WHITE BLOOD CELL COUNT,WBC 8.2 10^3/uL (5.0-10.0)
[2024-04-17 06:42] LABS: ALBUMIN 2.4 g/dL (3.4-5.0); BILIRUBIN TOTAL 0.3 mg/dL (0.2-1.0); BUN/CREATININE RATIO 14.4 (No establ ref range); CALCIUM 8.4 mg/dL (8.5-10.1); CREATININE 3.12 mg/dL (0.70-1.30); EST CRCL DRUG DOSING (CG) 13.7 mL/min; MAGNESIUM 2.2 mg/dL (1.8-2.4); PROTEIN TOTAL,TP 6.5 g/dL (6.4-8.2)
[2024-04-17 06:44] LABS: A/G RATIO 0.59
[2024-04-17] MEDS: Dextrose 5%-0.45% NaCl 1,000 ML IV SCH ×2 (08:00→22:39)
[2024-04-17] MEDS: methylPREDNISolone Sodium Succinate 40 MG/1 ML SDV IVPUSH SCH (08:03)
[2024-04-17 12:41] LABS: ANION GAP 17.8 mEq/L (7-13); CALCIUM 8.2 mg/dL (8.5-10.1); CREATININE 3.11 mg/dL (0.70-1.30); EST CRCL DRUG DOSING (CG) 13.75 mL/min; POTASSIUM,K 3.8 mmol/L (3.5-5.1)
[2024-04-17] MEDS: LORazepam 2 MG/ML SDV IVPUSH ONE (21:41)
[2024-04-18 06:37] LABS: BASOPHILS PERCENT AUTO 0.1 % (0.0-1.0); LYMPHOCYTES PERCENT AUTO 2.1 % (20.5-50.1); MEAN CORPUSCULAR HEMOGLOBIN 31.3 pg (27.0-34.0); MEAN CORPUSCULAR HGB CONC 29.6 g/dL (33.0-35.0); MEAN CORPUSCULAR VOLUME 105.5 fL (80-100); MONOCYTES PERCENT AUTO 3.7 % (2-8); NEUTROPHILS PERCENT AUTO 94.1 % (42.2-75.2); PLATELET COUNT,PLT 143 10^3/uL (150-450); RED BLOOD CELL COUNT 2.56 10^6/uL (4.6-6.2); WHITE BLOOD CELL COUNT,WBC 10.7 10^3/uL (5.0-10.0)
[2024-04-18 07:05] LABS: ALBUMIN 2.2 g/dL (3.4-5.0); ANION GAP 16.2 mEq/L (7-13); BILIRUBIN TOTAL 0.2 mg/dL (0.2-1.0); BUN/CREATININE RATIO 14.8 (No establ ref range); CALCIUM 7.9 mg/dL (8.5-10.1); CREATININE 3.1 mg/dL (0.70-1.30); EST CRCL DRUG DOSING (CG) 13.79 mL/min; MAGNESIUM 2.1 mg/dL (1.8-2.4); POTASSIUM,K 4.2 mmol/L (3.5-5.1)
[2024-04-18 07:07] LABS: A/G RATIO 0.58
[2024-04-18] MEDS ORDERED: Flumazenil 0.1 MG/ML 5 ML MDV IVPUSH PRN (13:23)
[2024-04-18] MEDS: Dextrose 5%-0.45% NaCl 1,000 ML IV SCH (18:32)
[2024-04-18] MEDS: LORazepam 2 MG/ML SDV IVPUSH ONE (23:59)
[2024-04-19] MEDS: LORazepam 2 MG/ML SDV IVPUSH PRN ×3 (00:07→22:10)
[2024-04-19 06:53] LABS: HEMATOCRIT 29.1 % (40.0-54.0); HEMOGLOBIN 8.7 g/dL (14.0-18.0); LYMPHOCYTES PERCENT AUTO 1.9 % (20.5-50.1); MEAN CORPUSCULAR HEMOGLOBIN 31.1 pg (27.0-34.0); MEAN CORPUSCULAR HGB CONC 29.9 g/dL (33.0-35.0); MEAN CORPUSCULAR VOLUME 103.9 fL (80-100); MONOCYTES PERCENT AUTO 3.5 % (2-8); NEUTROPHILS PERCENT AUTO 94.6 % (42.2-75.2); PLATELET COUNT,PLT 154 10^3/uL (150-450); WHITE BLOOD CELL COUNT,WBC 10.3 10^3/uL (5.0-10.0)
[2024-04-19 07:24] LABS: ALBUMIN 2.2 g/dL (3.4-5.0); BILIRUBIN TOTAL 0.3 mg/dL (0.2-1.0); BUN/CREATININE RATIO 14.8 (No establ ref range); CALCIUM 8.3 mg/dL (8.5-10.1); CREATININE 2.84 mg/dL (0.70-1.30); EST CRCL DRUG DOSING (CG) 15.05 mL/min; MAGNESIUM 2.2 mg/dL (1.8-2.4); PROTEIN TOTAL,TP 6.1 g/dL (6.4-8.2)
[2024-04-19 07:30] LABS: A/G RATIO 0.56
[2024-04-19] MEDS: Scopalamine 1mg/3day Transdermal Patch TOP ONE (11:37)
[2024-04-19] MEDS: Atropine 1% Ophth Soln 5 ML Bottle SL PRN (11:38)
[2024-04-19] MEDS: Morphine 10 MG/ML Syringe IVPUSH PRN (11:44)
[2024-04-20] MEDS: Morphine 10 MG/ML Syringe IVPUSH PRN (01:15)
== END 2024-04-20 05:40 | disposition expired | DRG 64 ==
LOC: DL.ED 10:29 → DL.MS 15:08
PROVIDERS: ADMIT Internal Medicine; ATTEND Student in an Organized Health Care Education/Training Program
PROC: 5A0935A Assistance with Respiratory Ventilation, Less than 24 Consecutive Hours, High Flow/Velocity Cannula (ICD-10-PCS; principal; 2024-04-17)
DX: I63.9 Cerebral infarction, unspecified (principal); I10 Essential (primary) hypertension; I63.312 Cerebral infarction due to thrombosis of left middle cerebral artery; J69.0 Pneumonitis due to inhalation of food and vomit; J96.01 Acute respiratory failure with hypoxia; G81.94 Hemiplegia, unspecified affecting left nondominant side; E87.1 Hypo-osmolality and hyponatremia; N39.0 Urinary tract infection, site not specified; Z51.5 Encounter for palliative care; Z66 Do not resuscitate; H91.90 Unspecified hearing loss, unspecified ear; S00.83XA Contusion of other part of head, initial encounter; H54.7 Unspecified visual loss; I48.91 Unspecified atrial fibrillation; E78.00 Pure hypercholesterolemia, unspecified; M19.90 Unspecified osteoarthritis, unspecified site; M81.0 Age-related osteoporosis without current pathological fracture; Z96.659 Presence of unspecified artificial knee joint; F17.210 Nicotine dependence, cigarettes, uncomplicated; N18.9 Chronic kidney disease, unspecified; I12.9 Hypertensive chronic kidney disease with stage 1 through stage 4 chronic kidney disease, or unspecified chronic kidney disease; E88.09 Other disorders of plasma-protein metabolism, not elsewhere classified; D63.1 Anemia in chronic kidney disease; H10.9 Unspecified conjunctivitis; B96.1 Klebsiella pneumoniae [K. pneumoniae] as the cause of diseases classified elsewhere; D72.829 Elevated white blood cell count, unspecified; J43.2 Centrilobular emphysema; Z79.899 Other long term (current) drug therapy; Z87.19 Personal history of other diseases of the digestive system; Z87.440 Personal history of urinary (tract) infections; Z98.890 Other specified postprocedural states; Z99.81 Dependence on supplemental oxygen; X58.XXXA Exposure to other specified factors, initial encounter
CPT/HCPCS: 36415; 70450; 70496; 70498; 70551; 80053; 80061; 82947; 83036; 84484; 85025; 85610; 85730; 87088; 93005; 93010; 94762; 99285 ×2; A9270 ×4; J7030; Q9967; 71046; 80048; 81001; 82607; 82746; 83735; 84295; 87086; 87186; 92610-GN; 93306; 94640; 97165-GO; J0360; J0456; J0696; J1171; J1200; J2060; J2270; J2919; J3486; J7050; J7620-GY; J7799